=== PATIENT | male | born 1975 | race Caucasian/White ===

== ENCOUNTER 2022-08-25 09:29 | Emergency (ER) | payer OTHER ==
[2022-08-25 09:49] VITALS: BP 107/69; PULSE 78; RESP 14; TEMP 98.4; BMI 27.4
[2022-08-25] MEDS ORDERED: TETRACAINE 0.5% OPHTH SOLN 2 ML BOTTLE OD ONE (10:08)
[2022-08-25] MEDS ORDERED: FLUORESCEIN NA 1 EA STRIP OD ONE (10:08)
[2022-08-25] MEDS ORDERED: FLUORESCEIN NA 1 EA STRIP ONE (10:11)
[2022-08-25] MEDS ORDERED: TETRACAINE 0.5% OPHTH SOLN 2 ML BOTTLE ONE (10:11)
== END 2022-08-25 10:31 | disposition home or self-care (01) ==
LOC: JERFT 09:29
DX: S05.01XA Injury of conjunctiva and corneal abrasion without foreign body, right eye, initial encounter (principal); W20.8XXA Other cause of strike by thrown, projected or falling object, initial encounter
CPT/HCPCS: 99283-25

== ENCOUNTER 2022-12-11 18:08 | Emergency (ER) | payer OTHER ==
[2022-12-11 18:12] VITALS: BP 100/56; PULSE 74; RESP 18; TEMP 98
[2022-12-11 18:17] VITALS: BMI 27.4
== END 2022-12-11 19:11 | disposition home or self-care (01) ==
LOC: JERFT 18:08
DX: R22.42 Localized swelling, mass and lump, left lower limb (principal); M25.462 Effusion, left knee
CPT/HCPCS: 99282-25